=== PATIENT | female | born 1970 | race Caucasian/White ===

== ENCOUNTER 2017-03-03 00:21 | Emergency (ER) | payer BC ==
[2017-03-03] MEDS ORDERED: NS 0.9% 1000 ML* 1,000 ML IV ONE (00:31)
[2017-03-03 00:53] LABS: Hematocrit 39 % (35-47); Hemoglobin 12.8 g/dl (12.0-16.0); Mean Corpuscular HGB Conc 33 g/dl (31-36); Mean Corpuscular Hemoglobin 26 pg (27-31); Mean Corpuscular Volume 77 fL (80-97); Mean Platelet Volume 7 um3 (7.4-10.4); Red Blood Count 4.99 10^6/ul (4.0-5.4); Red Cell Distribution Width 14 % (10.5-15); White Blood Count 7.3 10^3/ul (3.5-10.8)
[2017-03-03 01:05] LABS: BUN/Creatinine Ratio 26.3 (8-20); Calcium 9.3 mg/dL (8.6-10.3); EGFR African American 105.4 (>60); EGFR Non-African American 81.9 (>60); Globulin 3.6 g/dL (2-4); Magnesium 1.9 mg/dL (1.9-2.7); Potassium 4.1 mmol/L (3.5-5.0); Total Bilirubin 0.3 mg/dL (0.2-1.0); Total Protein 7.6 g/dL (6.4-8.9)
[2017-03-03 01:24] LABS: TSH (Thyroid Stimulating Horm) 3.9 mcIU/mL (0.34-5.60)
--- NOTE | 2017-03-03 02:07 | ED ---
Cheo Payan Rebecca, scribed for Raúl Paulson MD on 03/03/17 at 0034 . Shortness of Breath - HPI Summary HPI Summary: Pt is a 46 y/o F who presents to ED c/o SOB and difficulty swallowing. Sx began 4 days ago (Tuesday) and have been constant since onset. SOB characterized as dyspnea at rest with the pt stating "I cannot swallow and breathe at the same time." Sx aggravated and alleviated by nothing. Additionally c/o lymph node swelling. Was evaluated by PCP yesterday where the pt reports she was tested for strep, thyroid function and mono. PSHx tonsillectomy. - History of Current Complaint Chief Complaint: EDShortnessOfBreath Time Seen by Provider: 03/03/17 00:28 Hx Obtained From: Patient Onset/Duration: Lasting Days - 4 days, Still Present Timing: Constant Dyspnea At: Rest Aggrevating Factors: Nothing Alleviating Factors: Nothing - Allergy/Home Medications Allergies/Adverse Reactions: Allergies Allergy/AdvReac Type Severity Reaction Status Date / Time Hydromorphone [From Dilaudid] Allergy Severe Vomiting Verified 07/29/16 07:44 Amoxicillin Allergy Intermediate Rash Verified 07/29/16 07:44 Cefaclor [From Ceclor] Allergy Intermediate Rash Verified 07/29/16 07:44 Hydrocodone [From Lortab] Allergy Intermediate Rash Verified 07/29/16 07:44 PMH/Surg Hx/FS Hx/Imm Hx Endocrine/Hematology History: Denies: Hx Anticoagulant Therapy, Hx Diabetes, Hx Thyroid Disease Cardiovascular History: Denies: Hx Congestive Heart Failure, Hx Deep Vein Thrombosis, Hx Hypertension , Hx Myocardial Infarction, Hx Pacemaker/ICD Respiratory History: Denies: Hx Asthma, Hx Chronic Obstructive Pulmonary Disease (COPD), Hx Lung Cancer, Hx Pneumonia, Hx Pulmonary Embolism GI History: Denies: Hx Gall Bladder Disease, Hx Gastrointestinal Bleed, Hx Ulcer, Hx Urosepsis, Other GI Disorders History: Reports: Hx Kidney Stones Denies: Hx Renal Disease, Other Problems/Disorders Musculoskeletal History: Reports: Hx Arthritis Sensory History: Reports: Hx Contacts or Glasses Denies: Hx Hearing Aid Opthamlomology History: Reports: Hx Contacts or Glasses Neurological History: Reports: Hx Migraine Denies: Hx Dementia, Hx Seizures, Hx Transient Ischemic Attacks (TIA) Psychiatric History: Reports: Hx Depression Denies: Hx Anxiety, Hx Panic Disorder, Hx Schizophrenia, Hx Bipolar Disorder - Cancer History Hx Chemotherapy: No Hx Radiation Therapy: No - Surgical History Surgery Procedure, Year, and Place: Tonsillectomy, 1992, [facility]. Choleycystectomy, 2004, [facility]. Hysterectomy, 2009, [facility] Infectious Disease History: Denies: Hx Clostridium Difficile, Hx Hepatitis, Hx Human Immunodeficiency Virus (HIV), Hx of Known/Suspected MRSA, Hx Shingles, Hx Tuberculosis, Hx Known/ Suspected VRE, Hx Known/Suspected VRSA, History Other Infectious Disease, Traveled Outside the in Last 30 Days - Family History Known Family History: Positive: Hypertension Negative: Cardiac Disease, Diabetes - Social History Alcohol Use: None Substance Use Type: Reports: None Smoking Status (MU): Never Smoked Tobacco Review of Systems Positive: Other - Difficulty swallowing, swollen lymph nodes Positive: Shortness Of Breath All Other Systems Reviewed And Are Negative: Yes Physical Exam Vital Signs On Initial Exam: Initial Vitals Temp Pulse Resp BP Pulse Ox 97.2 F 97 20 140/100 96 03/03/17 00:21 03/03/17 00:21 03/03/17 00:21 03/03/17 00:21 03/03/17 00:21 Diagnostics - Vital Signs Vital Signs Temp Pulse Resp BP Pulse Ox 03/03/17 00:21 97.2 F 97 20 140/100 96 - Laboratory Lab Results: Lab Results 03/03/17 03/03/17 03/03/17 Range/Units 00:19 00:30 00:30 WBC 7.3 (3.5-10.8) 10^3/ul RBC 4.99 (4.0-5.4) 10^6/ul Hgb 12.8 (12.0-16.0) g/dl Hct 39 (35-47) % MCV 77 L (80-97) fL MCH 26 L (27-31) pg MCHC 33 (31-36) g/dl RDW 14 (10.5-15) % Plt Count 306 (150-450) 10^3/ul MPV 7 L (7.4-10.4) um3 Neut % (Auto) 53.1 (38-83) % Lymph % (Auto) 34.4 (25-47) % [place] % (Auto) 9.3 H (1-9) % Eos % (Auto) 2.7 (0-6) % Baso % (Auto) 0.5 (0-2) % Absolute Neuts (auto) 3.9 (1.5-7.7) 10^3/ul Absolute Lymphs (auto) 2.5 (1.0-4.8) 10^3/ul Absolute Monos (auto) 0.7 (0-0.8) 10^3/ul Absolute Eos (auto) 0.2 (0-0.6) 10^3/ul Absolute Basos (auto) 0 (0-0.2) 10^3/ul Absolute Nucleated RBC 0.01 10^3/ul Nucleated RBC % 0.1 Sodium 138 (133-145) mmol/L Potassium 4.1 (3.5-5.0) mmol/L Chloride 106 (101-111) mmol/L Carbon Dioxide 25 (22-32) mmol/L Anion Gap 7 (2-11) mmol/L BUN 20 (6-24) mg/dL Creatinine 0.76 (0.51-0.95) mg/dL Est GFR ( Amer) 105.4 (>60) Est GFR (Non-Af Amer) 81.9 (>60) BUN/Creatinine Ratio 26.3 H (8-20) Glucose 103 H (70-100) mg/dL Lactic Acid (0.5-2.0) mmol/L Calcium 9.3 (8.6-10.3) mg/dL Magnesium 1.9 (1.9-2.7) mg/dL Total Bilirubin 0.30 (0.2-1.0) mg/dL AST 23 (13-39) U/L ALT 14 (7-52) U/L Alkaline Phosphatase 88 (34-104) U/L Total Protein 7.6 (6.4-8.9) g/dL Albumin 4.0 (3.2-5.2) g/dL Globulin 3.6 (2-4) g/dL Albumin/Globulin Ratio 1.1 (1-3) TSH 3.90 (0.34-5.60) mcIU/mL Group A Strep Rapid Negative (Negative) 03/03/17 Range/Units 00:30 WBC (3.5-10.8) 10^3/ul RBC (4.0-5.4) 10^6/ul Hgb (12.0-16.0) g/dl Hct (35-47) % MCV (80-97) fL MCH (27-31) pg MCHC (31-36) g/dl RDW (10.5-15) % Plt Count (150-450) 10^3/ul MPV (7.4-10.4) um3 Neut % (Auto) (38-83) % Lymph % (Auto) (25-47) % [place] % (Auto) (1-9) % Eos % (Auto) (0-6) % Baso % (Auto) (0-2) % Absolute Neuts (auto) (1.5-7.7) 10^3/ul Absolute Lymphs (auto) (1.0-4.8) 10^3/ul Absolute Monos (auto) (0-0.8) 10^3/ul Absolute Eos (auto) (0-0.6) 10^3/ul Absolute Basos (auto) (0-0.2) 10^3/ul Absolute Nucleated RBC 10^3/ul Nucleated RBC % Sodium (133-145) mmol/L Potassium (3.5-5.0) mmol/L Chloride (101-111) mmol/L Carbon Dioxide (22-32) mmol/L Anion Gap (2-11) mmol/L BUN (6-24) mg/dL Creatinine (0.51-0.95) mg/dL Est GFR ( Amer) (>60) Est GFR (Non-Af Amer) (>60) BUN/Creatinine Ratio (8-20) Glucose (70-100) mg/dL Lactic Acid 0.8 (0.5-2.0) mmol/L Calcium (8.6-10.3) mg/dL Magnesium (1.9-2.7) mg/dL Total Bilirubin (0.2-1.0) mg/dL AST (13-39) U/L ALT (7-52) U/L Alkaline Phosphatase (34-104) U/L Total Protein (6.4-8.9) g/dL Albumin (3.2-5.2) g/dL Globulin (2-4) g/dL Albumin/Globulin Ratio (1-3) TSH (0.34-5.60) mcIU/mL Group A Strep Rapid (Negative) Result Diagrams: 03/03/17 00:30 03/03/17 00:30 Lab Statement: Any lab studies that have been ordered have been reviewed, and results considered in the medical decision making process. - Radiology CXR Xray Interpretation: No Acute Changes Radiology Interpretation Completed By: ED Physician - CT Neck CT CT Interpretation: No Acute Changes - Left jugular chain lymphadenopathy, largest node 3.1 x 1.8 x 1.2 cm, advise followup. No abscess or focal fluid collection. Unremarkable tonsillar fossa, epiglottis, thyroid gland and parotid and submandibular glands. Small mucus retention cyst right maxillary sinus. CT Interpretation Completed By: Radiologist Re-Evaluation - Re-Evaluation First Eval Re-Evaluation Time: 02:35 Change: Unchanged Comment: Pt reports she does not feel comfortable going home and was given the option of a hospitalist assessment. Second Eval Re-Evaluation Time: 06:44 Change: Improved Comment: Discussed Neck CT results and plan to D/C. Course/Dx - Course Assessment/Plan: Pt is a 46 y/o F who presents to ED c/o SOB (dyspnea at rest) and difficulty swallowing for 4 days. Pt stated "I cannot swallow and breathe at the same time." Additionally c/o lymph node swelling. Was evaluated by PCP yesterday where the pt reports she was tested for strep, thyroid function and mono. PSHx tonsillectomy. CXR reveals no acute findings. Discussed care of pt with Dr. Salcedo, hospitalist, who will evaluate pt in the ED. He requested a neck CT after evaluation. Neck CT reveals: "Left jugular chain lymphadenopathy, largest node 3.1 x 1.8 x 1.2 cm, advise followup. No abscess or focal fluid collection. Unremarkable tonsillar fossa, epiglottis, thyroid gland and parotid and submandibular glands. Small mucus retention cyst right maxillary sinus." Pt will be D/C to home with Dx of URI. Pt understands and agrees. - Diagnoses Provider Diagnoses: URI (upper respiratory infection) - Physician Notifications Discussed Care of Patient With: Nathaniel Salcedo Time Discussed With Above Provider: 02:44 Instructed by Provider To: MD Will See In ED Discharge - Discharge Plan Condition: Stable Disposition: HOME Patient Education Materials: Upper Respiratory Infection (ED) Referrals: Bhupinder Guerra DO [Primary Care Provider] - 3 Days The documentation as recorded by the Cheo prescott Rebecca accurately reflects the service I personally performed and the decisions made by me, Raúl Paulson MD.
[2017-03-03] MEDS ORDERED: Iohexol 300* (CONTRAST) 10 ML SDV IV ONE (05:13)
[2017-03-03] MEDS ORDERED: LORazepam INJ* 2 MG/ML 1 ML VIAL IV PUSH ONE (05:25)
[2017-03-03 06:56] VITALS: BP 132/85
--- NOTE | 2017-03-03 07:27 | RAD ---
INDICATION: Shortness of breath. COMPARISON: Comparison is made with a prior chest x-ray study from July 23, 2015. TECHNIQUE: Dual-energy PA and lateral views of the chest were obtained. FINDINGS: The heart is within normal limits in size. Mediastinal and hilar contours appear within normal limits. The lungs are clear. No pleural effusion is present. IMPRESSION: NO EVIDENCE FOR ACTIVE CARDIOPULMONARY DISEASE.
--- NOTE | 2017-03-03 07:47 | RAD ---
HISTORY: Left-sided neck mass COMPARISONS: None TECHNIQUE: Multiple contiguous axial CT scans were obtained of the neck after the administration of nonionic intravenous contrast, with coronal and sagittal multiplanar reformations. FINDINGS: BRAIN AND ORBITS: The visualized brain and orbits are normal. PARANASAL SINUSES: There is minimal mucosal thickening of the right maxillary sinus. SALIVARY GLANDS: The parotid glands, submandibular glands, sublingual glands are normal. NASAL CAVITY/NASOPHARYNX: The nasal cavity and nasopharynx are normal. ORAL CAVITY/OROPHARYNX: The oral cavity is obscured by streak artifact from dental amalgam. The visualized oral cavity and oropharynx are unremarkable. LARYNGEAL APPARATUS/HYPOPHARYNX: The laryngeal apparatus and hypopharynx are normal. UPPER AIRWAY/UPPER ESOPHAGUS: The visualized upper airway and esophagus are normal. LUNG APICES: The lung apices are clear. THYROID GLAND: The thyroid gland is normal. LYMPH NODES: There are multiple lymph nodes along the anterior and posterior cervical chains bilaterally. On the left at level 2, these measure up to 1.4 cm in short axis.. VASCULATURE: The vasculature is unremarkable. BONES AND SOFT TISSUES: Mild degenerative changes are noted. OTHER: None. IMPRESSION: LEFT UPPER CERVICAL LYMPHADENOPATHY.
--- NOTE | 2017-03-03 16:32 | CONS ---
CC: Dr. Geurra * CONSULTATION REPORT: DATE OF CONSULT: 03/03/17 - EMERGENCY DEPT CHIEF COMPLAINT: Difficulty swallowing. HISTORY OF PRESENT ILLNESS: The patient is a 46-year-old woman who states on Tuesday she started having difficulty swallowing because there is some swelling on the left side of her throat. It has been increasing over the last 2 days. She went to her primary care physician's office yesterday. She had a lab work done, which was within normal limits. She had chills as well. She said she also gets short of breath when she tries to swallow. She has not eaten much over the last 2 days because she cannot get anything down. She apparently came to the hospital because it became increasingly painful and more difficult to swallow and more shortness of breath. In the ED, the patient was evaluated and her workup was negative. The patient asked for a second opinion because she felt that she needed further evaluation. PAST MEDICAL HISTORY: She has no significant past medical history. MEDICATIONS: She is on no medication. ALLERGIES: She has an allergy/adverse reaction to HYDROMORPHONE, AMOXICILLIN, CEFACLOR, and HYDROCODONE. FAMILY HISTORY: Mother at 72 from COPD. Father at 86 of a CVA. SOCIAL HISTORY: No tobacco, alcohol, or recreational drug use. 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 She is , with 3 children. REVIEW OF SYSTEMS: A 14-point review of systems was completed with the patient. All pertinent positives and negatives are in the history of present illness, otherwise is negative. PHYSICAL EXAM: A pleasant woman lying in bed, in no acute distress. Vital Signs: Temperature 97.5 degrees, heart rate 80 beats per minute, respiratory rate 16 breaths per minute, blood pressure 132/85. HEENT: Normocephalic, atraumatic. Pupils are equal, round, and reactive to light. Moist mucous membranes. Neck: Supple. There is tenderness and swelling along the left side along the sternocleidomastoid. Chest: Clear to auscultation and percussion bilaterally. Cardiovascular: S1, S2 appreciated. Regular rate and rhythm. Abdomen: Positive bowel sounds in all 4 quadrants. Soft, nontender, and nondistended. Extremities: No cyanosis, clubbing, or edema. +2 peripheral pulses bilaterally. Neuro: Alert and oriented x3. Moves all extremities. Skin: No evidence of rash or abnormalities. DIAGNOSTIC STUDIES/LAB DATA: White count 7.3, hemoglobin 12.8, hematocrit 39, platelets 306,000. Sodium 138, potassium 4.1, chloride 106, CO2 25, BUN 20, creatinine 0.76, glucose 103. Group A strep is negative. CT of the neck showed left jugular chain lymphadenopathy, large nodes 3.1 x 1.8 x 1.6 cm. No abscess or fluid collection. Unremarkable tonsillar fossa, epiglottis, thyroid gland, and parotid and submandibular gland. Small mucous retention cyst in maxillary sinus. Chest x-ray shows no acute infiltrates. ASSESSMENT AND PLAN: Left-sided neck pain and swelling, likely secondary to lymphadenopathy. It is somewhat impressive. The patient should follow up with ENT for further evaluation. The patient does not require admission, however, at this time. Discussed this with the ED doctor who is in agreement. The patient will be discharged and follow up TOMAS with ENT. The patient was in agreement with this plan. TIME SPENT: Over 65 minutes was spent on this consult, more than 35 minutes of which was spent in direct [id number] contact with the patient in evaluation, physical exam, counseling, and coordination of care. [id number]/[facility] #: [id number] MARION
== END 2017-03-03 07:00 | disposition home or self-care (01) ==
LOC: ED 00:21 → EEVIPCON 00:21 → ED 07:00
DX: J06.9 Acute upper respiratory infection, unspecified (principal); R13.10 Dysphagia, unspecified; R06.02 Shortness of breath
CPT/HCPCS: 36415; 70491; 71020; 80053; 83605; 83735; 84443; 85025; 87651; 96374; 99284; J2060; Q9967

== ENCOUNTER 2017-08-08 09:36 | Observation (INO) | payer BC ==
[2017-08-08] MEDS ORDERED: Ketorolac INJ* 30 MG/ML 1 ML VIAL IV ONE (09:53)
[2017-08-08] MEDS ORDERED: NS 0.9% 1000 ML* 1,000 ML IV ONE ×2 (10:01→12:24)
[2017-08-08 10:03] LABS: Hematocrit 40 % (35-47); Hemoglobin 13.3 g/dl (12.0-16.0); Mean Corpuscular HGB Conc 33 g/dl (31-36); Mean Corpuscular Hemoglobin 27 pg (27-31); Mean Corpuscular Volume 80 fL (80-97); Mean Platelet Volume 7 um3 (7.4-10.4); Red Blood Count 5.01 10^6/ul (4.0-5.4); Red Cell Distribution Width 14 % (10.5-15); White Blood Count 7.6 10^3/ul (3.5-10.8)
[2017-08-08 10:20] LABS: ALT 15 U/L (7-52); Alkaline Phosphatase 81 U/L (34-104); BUN/Creatinine Ratio 21.1 (8-20); Blood Urea Nitrogen 15 mg/dL (6-24); CO2 Carbon Dioxide 27 mmol/L (22-32); Calcium 9.5 mg/dL (8.6-10.3); Chloride 105 mmol/L (101-111); Creatine Kinase 54 U/L (10-223); EGFR African American 113.5 (>60); EGFR Non-African American 88.2 (>60); Globulin 3.5 g/dL (2-4); Glucose 115 mg/dL (70-100); Sodium 135 mmol/L (133-145); Total Protein 7.5 g/dL (6.4-8.9)
--- NOTE | 2017-08-08 10:24 | RAD ---
Indication: Chest pain. 2 views of the chest including dual energy PA views are reviewed and compared to previous exam dated March 03, 2017. Real-time shift is noted. Heart is of normal size and configuration. Lung rodrigues are clear. IMPRESSION: No active cardiopulmonary disease is noted.
[2017-08-08 11:02] LABS: TSH (Thyroid Stimulating Horm) 1.79 mcIU/mL (0.34-5.60)
[2017-08-08] MEDS ORDERED: Nitroglycerin TAB 0.4 MG* 0.4 MG TAB SL ONE (11:40)
[2017-08-08 12:29] LABS: Anion Gap 3 mmol/L (2-11)
[2017-08-08] MEDS ORDERED: Albuterol HFA INHALER* 8 gm MDI INH PRN (12:53)
[2017-08-08] MEDS ORDERED: Nitroglycerin TAB 0.4 MG* 0.4 MG TAB SL PRN ×2 (12:55→16:00)
--- NOTE | 2017-08-08 18:50 | HP ---
HISTORY AND PHYSICAL: DATE OF ADMISSION: 08/08/17 ADMITTING PROVIDER: Ramy Sanford MD PRIMARY CARE PHYSICIAN: Bhupinder Guerra DO CHIEF COMPLIANT: Chest tightness. Left arm tingling, left shoulder blade pain. HISTORY OF PRESENT ILLNESS: Alia Mendes is a 47-year-old female, PMH as above , woke up from sleep at 3 a.m. with 4/10 chest tightness in her left chest. She also had tingling and more so in her left shoulder all the way down to her hand and pain in her left shoulder blade. EMS was called, she was given 4 baby aspirin, 2 nitroglycerin and the chest tightness resolved or improved to 1/10, is fully improved in the ED. She got Toradol initially 30 at 10 a.m.,which did not seem to change her symptoms, but again with additional nitro as of 11:45 a.m., chest tightness was down to 1/10. Troponin initially was 0.00. EKG with normal sinus rhythm without any ischemic changes. She is being admitted for ACS rule out. She was a little short of breath, at baseline she gets shortness of breath walking upstairs. She does do a tap dance aerobic class twice a week which she tolerates okay. She is a never smoker. No significant cardiac family history. Did have elevated troponin back in July 2015, which she says felt different from this . At that time, troponin was around 0.15 and improved to 0.00 on recheck. Recently she has been worked out for a multinodular goiter as an outpatient with Dr. Guerra after she presented with some swallowing difficulty on 03/03/17. She denies any cough. She is nauseous , but no vomiting. No fevers or chills. No rashes. No recent travel. No leg swelling. on Tuesday night. Sees no specialist. PAST MEDICAL HISTORY: 1. Migraine headaches. 2. Anemia. 3. Endometriosis. 4. GERD. 5. Thyroid. 6. Multinodular goiter. CURRENT MEDICATIONS: 1. Levothyroxine 25 mcg daily. 2. Albuterol inhaler p.r.n. for exercise-induced asthma and recent sinus infection 2 weeks prior. The patient takes medications for GERD, but cannot remember what it was. ALLERGIES: DILAUDID gives severe vomiting; AMOXICILLIN, rash; CECLOR, rash; HYDROCODONE, rash. FAMILY HISTORY: Dad with 2 strokes, first at age 60. Mother of COPD. Brother has hypertension. 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 Never smoker. No significant alcohol use or drug use. Lives with Daryl Mendes who is her medical surrogate. REVIEW OF SYSTEMS: Complete 14-point review of systems is negative except as per HPI. PHYSICAL EXAMINATION GENERAL APPEARANCE: Well appearing, in no acute distress, sitting in hospital bed. HEENT: Normocephalic, atraumatic. Pupils equally round and reactive to light. Moist mucous membranes. Extraocular motions intact. NECK: No cervical lymphadenopathy. PULMONARY: Clear to auscultation bilaterally with no wheezing, rales or rhonchi. CARDIOVASCULAR: Regular rate and rhythm. No murmurs, rubs or gallops. ABDOMEN: Soft, nontender, nondistended. No peritoneal signs. No clotting. No Suh's sign. EXTREMITIES: Warm and well perfused. No peripheral edema. NEUROLOGIC: Cranial nerves II through XII are intact. Moving all extremities. Cross Country/Track And Field Coach strength intact bilaterally. MUSCULOSKELETAL: No pain to palpation of her shoulder blade or arm. DIAGNOSTIC STUDIES/LABORATORY DATA: White count 7.6, hemoglobin 13.3, hematocrit 40, platelets 391. Sodium 135, chloride 105, carbon dioxide 27, BUN 15, creatinine 0.71. Troponin 0.00. TSH 1.79. Chest x-ray, no acute cardiopulmonary process. EKG is normal sinus rhythm. No ST changes. No T-wave inversions. ASSESSMENT AND PLAN: Alia Mendes is a 47-year-old female presenting with chest tightness, left arm numbness, admitted for acute coronary syndrome rule out. Trend troponins 2 to 3 hours, continue telemetry, admit to observation status. Sublingual nitro as needed. If she gets another attack, we will start Nitropaste or morphine. No history of hyperlipidemia and HDL and LDL were good back in 2014. Hold off on atorvastatin right now. She is status post 324 mg aspirin in the ED and continue to have 81 mg tomorrow if she is still here. It is possible she could be discharged later this afternoon if third troponin is negative. She will be n.p.o. for now. Continue her Synthroid 25 mcg daily. Tylenol as needed for additional musculoskeletal pain. [id number]/[facility] #: [id number] [place]
[2017-08-08] MEDS: Ondansetron INJ* 2 MG/ML VIAL IV PRN (20:23)
[2017-08-09] MEDS ORDERED: Levothyroxine TAB* 25 MCG TAB PO SCH (06:00)
[2017-08-09] MEDS: Naproxen TAB* 250 MG PO PRN ×2 (08:23→15:50)
[2017-08-09] MEDS: Ondansetron INJ* 2 MG/ML VIAL IV PRN ×2 (08:24→15:51)
[2017-08-09] MEDS ORDERED: Aspirin Low Dose CHEW TAB* 81 MG PO SCH (09:00)
[2017-08-09 09:48] VITALS: BP 135/70
[2017-08-09] MEDS ORDERED: Regadenoson* 0.4 MG/5 ML SYRINGE ONE (09:53)
[2017-08-09] MEDS ORDERED: Aminophylline IV* 25 MG/ML 10 ML VIAL ONE (09:53)
--- NOTE | 2017-08-09 12:19 | RAD ---
Edited for charges. HISTORY: Chest pain COMPARISONS: None TECHNIQUE: A 1 day stress/rest myocardial perfusion study was performed, with exercise stress. The exercise portion was performed using the Alejandro protocol, for a total METs of 10.1. The stress portion was monitored by Dr. Van. Gated SPECT imaging was performed, without CT-based attenuation correction secondary to patient claustrophobia DOSE: Stress: Technetium 99m tetrofosmin, 25.38 millicuries, injected at 11:10 AM on August 09, 2017 Rest: Technetium 99m tetrofosmin, 1.5 millicuries, injected at 7:03 AM on August 09, 2017 Pharmacologic agent: None FINDINGS: CARDIAC MONITORING: Peak heart rate of 162 bpm, 94.1% of predicted. No EKG changes of ischemia with stress EF: 75% TID: 0.98 MOTION: Normal motion, with normal wall thickening. PERFUSION: There is a small to moderate reversible perfusion defect of the lateral wall. OTHER: None IMPRESSION: SMALL TO MODERATE REVERSIBLE PERFUSION DEFECT OF THE LATERAL WALL ASSESSMENT: INTERMEDIATE RISK. Based on imaging criteria from ACC/AHA 2002. Guideline Update for the Management of Patient's with Chronic Stable Angina, table 23. Noninvasive Risk Stratification. CPT II Codes: 6210J5N MTDD
--- NOTE | 2017-08-09 13:01 | PN ---
Subjective Date of Service: 08/09/17 Interval History: Pt is feeling ok currently. She did have some chest discomfort while at the stress test. No further chest pain. She has had a migraine all morning. Objective Active Medications: Albuterol (Ventolin Hfa Inhaler*) 1 puff INH QID PRN PRN Reason: SHORTNESS OF BREATH Aspirin (Aspirin Low Dose Tab*) 81 mg PO DAILY [facility] Last Admin: 08/09/17 07:48 Dose: 81 mg Levothyroxine Sodium (Synthroid Tab*) 25 mcg PO DAILY@0600 [facility] Last Admin: 08/09/17 06:22 Dose: 25 mcg Naproxen (Naprosyn Tab*) 500 mg PO Q8H PRN PRN Reason: MIGRAINE HEADACHE Last Admin: 08/09/17 08:23 Dose: 500 mg Nitroglycerin (Nitroglycerin Tab 0.4 Mg*) 0.4 mg SL Q5M PRN PRN Reason: ANGINA Ondansetron HCl (Zofran Inj*) 4 mg IV Q6H PRN PRN Reason: NAUSEA Last Admin: 08/09/17 08:24 Dose: 4 mg Vital Signs - 8 hr 08/09/17 08/09/17 08:00 09:06 Temperature 97.6 F Pulse Rate 74 Respiratory 16 16 Rate Blood Pressure 135/70 (mmHg) O2 Sat by Pulse 97 Oximetry Oxygen Devices in Use Now: None Appearance: Middle aged female lying in bed, NAD Eyes: No Scleral Icterus Ears/Nose/Mouth/Throat: Mucous Membranes Moist Respiratory: Symmetrical Chest Expansion and Respiratory Effort, Clear to Auscultation Cardiovascular: NL Sounds; No Murmurs; No JVD, RRR, No Edema Abdominal: NL Sounds; No Tenderness; No Distention Extremities: No Clubbing, Cyanosis Skin: No Rash or Ulcers, No Nodules or Sclerosis Neurological: Alert and Oriented x 3 Result Diagrams: 08/08/17 09:50 08/08/17 12:40 Assess/Plan/Problems-Billing Ms Mendes is a 47 yo F who has a h/o hypothyroidism who presented to the ER with c/o chest discomfort. - Patient Problems (1) Chest pain Current Visit: Yes Status: Acute Code(s): R07.9 - CHEST PAIN, UNSPECIFIED SNOMED Code(s): 22166981 Comment: The patient's stress test showed a small to moderate area of reversible change in the lateral wall. Will discuss with Dr. Van. Keep NPO for now and pt agrees. ? artifact from breast tissue vs true area of ischemia. (2) Hypothyroid Current Visit: Yes Status: Acute Code(s): E03.9 - HYPOTHYROIDISM, UNSPECIFIED SNOMED Code(s): 36745715 Comment: Continue current dose of synthroid. (3) Migraine Current Visit: Yes Status: Acute Code(s): G43.909 - MIGRAINE, UNSP, NOT INTRACTABLE, WITHOUT STATUS MIGRAINOSUS SNOMED Code(s): 21530404 Comment: Naproxen did not help her headache. Will give fentanyl 25mcg IV x1 now. Monitor symptoms. (4) DVT prophylaxis Current Visit: Yes Status: Acute Code(s): SXT7076 - SNOMED Code(s): 264855962 Comment: ambulation (5) Full code status Current Visit: Yes Status: Acute Code(s): Z78.9 - OTHER SPECIFIED HEALTH STATUS SNOMED Code(s): 712088564
[2017-08-09] MEDS ORDERED: fentaNYL* 50 MCG/ML 2 ML VIAL (100 MCG VIAL) IV SLOW PU ONE (13:09)
--- NOTE | 2017-08-09 15:24 | ED ---
Lisa Payan Edward, scribed for Polo Magana MD on 08/08/17 at 0944 . HPI Chest Pain - HPI Summary HPI Summary: 47 y/o female BIBA c/o CP located in the L side chest starting at 03:00 this morning. The pt was sleeping and was awakened by the pain. The pain is aggravated with deep breaths. Associated sx: L arm numbness, nausea, mild SOB. the pain is described as tightness, rated at 4-5/10 when it started and 3/10 now. 4-5 years ago the pt had similar symptoms. Sx hysterectomy, gall bladder removal, tonsillectomy. Denies cough, fever. - History of Current Complaint Chief Complaint: EDChestWallPain Time Seen by Provider: 08/08/17 09:39 Hx Obtained From: Patient Hx Last Menstrual Period: 2010 Onset/Duration: Started Hours Ago, Still Present Time of Onset: 03:00 Timing: Constant Initial Severity: Mild Current Severity: Mild Pain Intensity: 3 Pain Scale Used: 0-10 Numeric Chest Pain Location: Left Lateral Character: Tightness Aggravating Factor(s): Deep Breaths Alleviating Factor(s): Nothing Associated Signs and Symptoms: Positive: Chest Pain, Numbness - L arm, Shortness of Breath, Nausea. Negative: Fever, Cough - Allergy/Home Medications Allergies/Adverse Reactions: Allergies Allergy/AdvReac Type Severity Reaction Status Date / Time Hydromorphone [From Dilaudid] Allergy Severe Vomiting Verified 07/29/16 07:44 Amoxicillin Allergy Intermediate Rash Verified 07/29/16 07:44 Cefaclor [From Ceclor] Allergy Intermediate Rash Verified 07/29/16 07:44 Hydrocodone [From Lortab] Allergy Intermediate Rash Verified 07/29/16 07:44 Home Medications: Home Medications Albuterol HFA INHALER* [Ventolin HFA Inhaler*] 1 puff INH QID PRN 08/08/17 [ History Confirmed 08/08/17] Levothyroxine TAB* [Synthroid TAB*] 25 mcg PO DAILY 08/08/17 [History Confirmed 08/08/17] PMH/Surg Hx/FS Hx/Imm Hx Previously Healthy: No Endocrine/Hematology History: Denies: Hx Anticoagulant Therapy, Hx Diabetes, Hx Thyroid Disease Cardiovascular History: Denies: Hx Congestive Heart Failure, Hx Deep Vein Thrombosis, Hx Hypertension , Hx Myocardial Infarction, Hx Pacemaker/ICD Respiratory History: Denies: Hx Asthma, Hx Chronic Obstructive Pulmonary Disease (COPD), Hx Lung Cancer, Hx Pneumonia, Hx Pulmonary Embolism GI History: Denies: Hx Gall Bladder Disease, Hx Gastrointestinal Bleed, Hx Ulcer, Hx Urosepsis, Other GI Disorders History: Reports: Hx Kidney Stones Denies: Hx Dialysis, Hx Renal Disease, Other Problems/Disorders Musculoskeletal History: Reports: Hx Arthritis Sensory History: Reports: Hx Contacts or Glasses Denies: Hx Hearing Aid Opthamlomology History: Reports: Hx Contacts or Glasses Neurological History: Reports: Hx Migraine Denies: Hx Dementia, Hx Seizures, Hx Transient Ischemic Attacks (TIA) Psychiatric History: Reports: Hx Depression Denies: Hx Anxiety, Hx Panic Disorder, Hx Schizophrenia, Hx Bipolar Disorder - Cancer History Hx Chemotherapy: No Hx Radiation Therapy: No - Surgical History Surgery Procedure, Year, and Place: Tonsillectomy, 1992, [facility]. Choleycystectomy, 2004, [facility]. Hysterectomy, 2008, [facility] Infectious Disease History: No Infectious Disease History: Denies: Hx Clostridium Difficile, Hx Hepatitis, Hx Human Immunodeficiency Virus (HIV), Hx of Known/Suspected MRSA, Hx Shingles, Hx Tuberculosis, Hx Known/ Suspected VRE, Hx Known/Suspected VRSA, History Other Infectious Disease, Traveled Outside the in Last 30 Days - Family History Known Family History: Positive: Hypertension Negative: Cardiac Disease, Diabetes - Social History Alcohol Use: None Hx Substance Use: No Substance Use Type: Reports: None Hx Tobacco Use: No Smoking Status (MU): Never Smoked Tobacco Review of Systems Constitutional: Negative Eyes: Negative ENT: Negative Positive: Chest Pain Positive: Shortness Of Breath. Negative: Cough Positive: Nausea Genitourinary: Negative Musculoskeletal: Negative Skin: Negative Positive: Numbness - L arm Psychological: Normal All Other Systems Reviewed And Are Negative: Yes Physical Exam - Summary Physical Exam Summary: VITAL SIGNS: Reviewed. GENERAL: Patient is a well-developed and nourished female who is lying comfortable in the stretcher. Patient is not in any acute respiratory distress. HEAD AND FACE: No signs of trauma. No ecchymosis, hematomas or skull depressions. No sinus tenderness. EYES: PERRLA, EOMI x 2, No injected conjunctiva, no nystagmus. EARS: Hearing grossly intact. Ear canals and tympanic membranes are within normal limits. MOUTH: Oropharynx within normal limits. NECK: Supple, trachea is midline, no adenopathy, no JVD, no carotid bruit, no c- spine tenderness, neck with full ROM. CHEST: Symmetric, reproducible chest pain at the L side. LUNGS: Clear to auscultation bilaterally. No wheezing or crackles. CVS: Regular rate and rhythm, S1 and S2 present, no murmurs or gallops appreciated. ABDOMEN: Soft, non-tender. No signs of distention. No rebound no guarding, and no masses palpated. Bowel sounds are normal. EXTREMITIES: FROM in all major joints, no edema, no cyanosis or clubbing. NEURO: Alert and oriented x 3. No acute neurological deficits. Speech is normal and follows commands. SKIN: Dry and warm Triage Information Reviewed: Yes Vital Signs On Initial Exam: Initial Vitals Temp Pulse Resp BP Pulse Ox 97.9 F 95 22 152/91 96 08/08/17 09:38 08/08/17 09:38 08/08/17 09:38 08/08/17 09:38 08/08/17 09:38 Vital Signs Reviewed: Yes - Diego Coma Scale Coma Scale Total: 15 Diagnostics - Vital Signs Vital Signs Temp Pulse Resp BP Pulse Ox 08/08/17 09:38 97.9 F 95 22 152/91 96 - Laboratory Lab Results: Lab Results 08/08/17 08/08/17 Range/Units 09:50 09:50 WBC 7.6 (3.5-10.8) 10^3/ul RBC 5.01 (4.0-5.4) 10^6/ul Hgb 13.3 (12.0-16.0) g/dl Hct 40 (35-47) % MCV 80 (80-97) fL MCH 27 (27-31) pg MCHC 33 (31-36) g/dl RDW 14 (10.5-15) % Plt Count 391 (150-450) 10^3/ul MPV 7 L (7.4-10.4) um3 Neut % (Auto) 57.1 (38-83) % Lymph % (Auto) 34.0 (25-47) % Bremer % (Auto) 5.5 (1-9) % Eos % (Auto) 2.8 (0-6) % Baso % (Auto) 0.6 (0-2) % Absolute Neuts (auto) 4.3 (1.5-7.7) 10^3/ul Absolute Lymphs (auto) 2.6 (1.0-4.8) 10^3/ul Absolute Monos (auto) 0.4 (0-0.8) 10^3/ul Absolute Eos (auto) 0.2 (0-0.6) 10^3/ul Absolute Basos (auto) 0 (0-0.2) 10^3/ul Absolute Nucleated RBC 0.01 10^3/ul Nucleated RBC % 0.1 Sodium 135 (133-145) mmol/L Potassium Pending Chloride 105 (101-111) mmol/L Carbon Dioxide 27 (22-32) mmol/L Anion Gap Pending BUN 15 (6-24) mg/dL Creatinine 0.71 (0.51-0.95) mg/dL Est GFR ( Amer) 113.5 (>60) Est GFR (Non-Af Amer) 88.2 (>60) BUN/Creatinine Ratio 21.1 H (8-20) Glucose 115 H (70-100) mg/dL Calcium 9.5 (8.6-10.3) mg/dL Total Bilirubin 0.40 (0.2-1.0) mg/dL AST Pending ALT 15 (7-52) U/L Alkaline Phosphatase 81 (34-104) U/L Total Creatine Kinase 54 (10-223) U/L CK-MB (CK-2) 0.6 (0.6-6.3) ng/mL Troponin I 0.00 (<0.04) ng/mL Total Protein 7.5 (6.4-8.9) g/dL Albumin 4.0 (3.2-5.2) g/dL Globulin 3.5 (2-4) g/dL Albumin/Globulin Ratio 1.1 (1-3) TSH Pending Result Diagrams: 08/08/17 09:50 08/08/17 12:40 Lab Statement: Any lab studies that have been ordered have been reviewed, and results considered in the medical decision making process. - Radiology CXR Xray Interpretation: No Acute Changes - NO ACTIVE CARDIOPULMONARY DISEASE NOTED Radiology Interpretation Completed By: Radiologist - ED PHYSICIAN REVIEWS AND AGREES - EKG 1 EKG Interpretation: 10:23 - SR @ 88 BPM w/o ST ELEVATIONS EKG Comparison: No Significant Change - 07/23/15 2 EKG Interpretation: 11:28 - SR @ 72 bpm, NO ST ELEVATIONS. Re-Evaluation - Re-Evaluation 1 Re-Evaluation Time: 12:00 Change: Unchanged - Pt is still having CP and also c/o dizziness. Pt was given 1 NTG and her CP went from 6 to a 4/10. Discussed plan to admit Chest Pain Course/Dx - Course Assessment/Plan: 47 y/o female BIBA c/o CP located in the L side chest starting at 03:00 this morning. The pt was sleeping and was awakened by the pain. The pain is aggravated with deep breaths. Associated sx: L arm numbness, nausea, mild SOB. the pain is described as tightness, rated at 4-5/10 when it started and 3/10 now. 4-5 years ago the pt had similar symptoms. Sx hysterectomy, gall bladder removal, tonsillectomy. CXR NEGATIVE. EKG @ 10:23 - SR @ 88 BPM w/o ST ELEVATIONS. REPEATE EKG SHOWS 11:28 - SR @ 72 bpm, NO ST ELEVATIONS. Test results without significant abnormalities except glucose of 115. Prior to arrival the pt was given NTG and ASA in the ambulance and her sx improved. While she was here the pt reports that her pain has improved and the pain was reproducible, therefore she was given 1 dose Toradol. The toradol did not help her pain. A few hours later the pt developed again CP and chest pressure; therefore the pt was given NTG and again her sx improved; therefore I discussed with Dr. Sanford who accepted the pt for admission. - Chest Pain Differential Diagnosis/HQI/PQRI: Acute ID, ACS, Angina, CHF, Chest Wall, GI Disease, Pulmonary Edema - Diagnoses Provider Diagnoses: Chest Pain, rule out ACS - Provider Notifications Discussed Care Of Patient With: Ramy Sanford Time Discussed With Above Provider: 12:20 Instructed by Provider To: Admit As Inpatient Discharge - Discharge Plan Condition: Stable Disposition: ADMITTED TO [facility] documentation as recorded by the Lisa prescott Edward accurately reflects the service I personally performed and the decisions made by , Polo Magana MD.
--- NOTE | 2017-08-09 22:32 | CONS ---
CC: Dr. Bhupinder Guerra; Dr. Clair Holloway * CARDIOLOGY CONSULTATION REPORT: DATE OF CONSULT: 08/09/17 INDICATION FOR CONSULTATION: Chest discomfort. HISTORY OF PRESENT ILLNESS: The patient is a 47-year-old female with a history of anemia, gastroesophageal reflux disease, who was admitted to the hospital with chest discomfort. The patient states that she was at home yesterday when she started having chest pain, it was in the center of her chest. She did have some mild diaphoresis with that, it did radiate down her arm. The patient got quite anxious with this and ultimately called 911. On arrival of the ambulance , her EKG showed no obvious ST segment abnormalities. Her blood pressure on arrival of the ambulance was 180/120. The patient was transferred to the emergency room. She was given nitroglycerin and morphine with resolution of her symptoms. She has not had any further symptoms since being in the hospital. The patient's EKG shows no ischemic EKG changes. Her troponin levels were negative x3. PAST MEDICAL HISTORY: Significant for: 1. Migraine headaches. 2. Anemia. 3. Gastroesophageal reflux disease. 4. Multinodular goiter. OUTPATIENT MEDICATIONS: 1. Levoxyl 25 mcg a day. 2. Albuterol p.r.n. ALLERGIES: She is intolerant to Dilaudid and amoxicillin. FAMILY HISTORY: Father had a history of strokes, his first was the age of 60. Mother of COPD. 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 She has never been a smoker. She denies any alcohol. She lives with her . She does not get any regular exercise. PHYSICAL EXAM: Height is 5 feet 10 inches, weight 213 pounds, temperature 97.6 , heart rate 74, blood pressure 135/70, respiratory rate is 16, oxygen saturation 97% on room air. Sclerae anicteric. Oropharynx is pink without erythema. Carotids are 2+ without bruits. JVD is normal. Thyroid is normal. Cardiac Exam: S1, S2 without any murmurs, rubs, or gallops. PMI is normal. Lungs are clear to auscultation bilaterally with no dullness to percussion. Abdomen is soft, nontender, and nondistended with normoactive bowel sounds. Extremities show no edema. She has 2+ pulses throughout. The patient is awake , alert, and oriented. She moves all 4 extremities equally. DIAGNOSTIC STUDIES/LAB DATA: CBC within normal limits. Chemistry is within normal limits. AST and ALT are normal. Troponins are negative x3. TSH 1.79. EKG shows normal sinus rhythm with normal axis and intervals. The patient underwent an exercise nuclear stress test today. She exercised for an 8 minutes and 15 seconds. She had no EKG changes, no arrhythmias. The patient did have 3/10 chest pain at the peak of exercise that resolved within 3 minutes of recovery. The patient had nuclear imaging, which showed a mild area of mild defect to her lateral wall. Overall, LV function was normal. IMPRESSION: This is a 47-year-old female with low cardiac risk factors, who was admitted to the hospital with chest pain. She ruled out for acute coronary syndrome. Her stress test shows reasonable exercise tolerance. She did have mild chest pain at peak exercise. She did have a mild area of potential ischemic defect to her lateral wall. It was not an attenuation corrected images. She does have some lateral wall attenuation from her breast tissue. RECOMMENDATIONS: For now, my recommendation is to treat her for potential coronary artery disease. I do not think the patient needs to go to cardiac catheterization right now. My recommendation is to start aspirin 81 mg a day, Toprol-XL 25 mg a day, and atorvastatin 40 mg a day. I will see the patient in followup in 7 to 10 days. If she has any further chest pain, then I would recommend cardiac catheterization. At some point in the future, we may consider a CT angiogram of the coronary arteries for definitive evaluation of her coronary artery disease without risk of catheterization. I will discuss with her followup. [id number]/[facility] #: [id number] [place]
--- NOTE | 2017-08-10 03:13 | DS ---
CC: Dr. Guerra * DISCHARGE SUMMARY: DATE OF ADMISSION: 08/08/17 DATE OF DISCHARGE: 08/09/17 PRIMARY CARE PROVIDER: Dr. Guerra. PRINCIPAL DIAGNOSIS: Chest pain with abnormal stress test - possibly mild coronary artery disease. SECONDARY DIAGNOSES: 1. Migraine headaches. 2. Gastroesophageal reflux disease. 3. Hypothyroidism. DISCHARGE MEDICATIONS: 1. Zofran ODT 4 mg p.o. q.6 hours p.r.n. nausea. 2. Vitamin B12 5000 mcg p.o. daily. 3. Naproxen 500 mg p.o. q.8 hours p.r.n. pain. 4. Albuterol 2 puffs inhaled 4 times daily p.r.n. shortness of breath. 5. Levothyroxine 25 mcg p.o. daily. 6. Metoprolol XL 25 mg p.o. daily (new). 7. Lipitor 20 mg p.o. q.h.s. (new). 8. Aspirin 81 mg p.o. daily (new). HOSPITAL COURSE: Ms. Mendes is a 47-year-old female, who presented to the emergency room on 08/08/17 with complaints of chest tightness, left arm tingling , and left shoulder blade pain. The patient was awakened from sleep with this discomfort. The patient ultimately presented to the emergency room with these complaints and was admitted to rule out an acute coronary syndrome. The patient was ruled out for an acute coronary syndrome and underwent a nuclear stress test on the day of discharge. The nuclear imaging of the stress test revealed a small-to- moderate reversible perfusion defect of the lateral wall. The patient was seen in consultation by Dr. Van, who at this time noted that the patient exercised quite well during the stress test and had no EKG changes and wished to treat the patient medically. He recommended starting her on aspirin 81 mg p.o. daily, Toprol-XL 25 mg p.o. daily, and Lipitor 20 mg p.o. daily. The patient is in agreement with this plan. She will follow back up with Dr. Van as an outpatient where he will potentially arrange for a coronary artery CT. At this point, the patient is felt to be stable for discharge home. FOLLOWUP CONCERNS: The patient is being discharged home today, 08/09/17. ACTIVITY LEVEL: As tolerated. DIET: Low fat. CONDITION ON DISCHARGE: Stable. TIME SPENT: Thirty-five minutes was spent discharging this patient. [id number]/[facility] #: [id number] [place]
== END 2017-08-09 17:22 | disposition home or self-care (01) ==
LOC: ED 09:36 → MEDTELE 12:51
PROVIDERS: ADMIT Internal Medicine; ATTEND Hospitalist
DX: R07.9 Chest pain, unspecified (principal); G43.909 Migraine, unspecified, not intractable, without status migrainosus; K21.9 Gastro-esophageal reflux disease without esophagitis; E03.9 Hypothyroidism, unspecified; Z79.899 Other long term (current) drug therapy; Z88.1 Allergy status to other antibiotic agents; Z88.5 Allergy status to narcotic agent; N80.9 Endometriosis, unspecified; E04.2 Nontoxic multinodular goiter; R06.02 Shortness of breath; R94.31 Abnormal electrocardiogram [ECG] [EKG]
CPT/HCPCS: 36415; 71020; 78452; 80053; 82550; 82553; 84443; 84484; 85025; 93005; 93017; 96361; 96374; 96375; 99284; A9270-GY; A9502; G0378; J0280; J1885; J2405; J2785; J3010

== ENCOUNTER 2017-12-21 07:48 | Emergency (ER) | payer BC ==
[2017-12-21] MEDS ORDERED: Ondansetron INJ* 2 MG/ML VIAL IV ONE (08:25)
[2017-12-21] MEDS ORDERED: Meclizine TAB* 12.5 MG PO ONE (08:25)
[2017-12-21] MEDS ORDERED: NS 0.9% 1000 ML* 2,000 ML IV ONE (08:25)
[2017-12-21 08:45] LABS: ABS Basophils 0 10^3/ul (0-0.2); ABS Eosinophils 0.2 10^3/ul (0-0.6); ABS Lymphocytes 2.1 10^3/ul (1.0-4.8); ABS Monocytes 0.4 10^3/ul (0-0.8); ABS Neutrophils 3.8 10^3/ul (1.5-7.7); ABS Nucleated RBC 0 10^3/ul; Hematocrit 39 % (35-47); Hemoglobin 13.1 g/dl (12.0-16.0); Lymphocyte % 32.7 % (25-47); Mean Corpuscular HGB Conc 34 g/dl (31-36); Mean Corpuscular Hemoglobin 27 pg (27-31); Mean Corpuscular Volume 80 fL (80-97); Mean Platelet Volume 6.9 um3 (7.4-10.4); Nucleated Red Blood Cells % 0.1; Platelet Count 313 10^3/ul (150-450); Red Cell Distribution Width 14 % (10.5-15); White Blood Count 6.5 10^3/ul (3.5-10.8)
[2017-12-21 08:58] LABS: INR 0.92 (0.77-1.02)
[2017-12-21 09:05] LABS: EGFR Non-African American 76.9 (>60)
[2017-12-21 09:34] LABS: Urine Appearance Clear; Urine Blood 2+ (Negative); Urine Color Straw; Urine Ketones Negative (Negative); Urine Protein Negative (Negative); Urine Specific Gravity 1.003 (1.010-1.030); Urine Urobilinogen Negative (Negative)
--- NOTE | 2017-12-21 12:18 | ED ---
Joe Payan Gabriel, scribed for Jaswinder Valerio MD on 12/21/17 at 0824 . Dizziness - HPI Summary HPI Summary: This patient is a 47 year old F BIBA to [facility] with a chief complaint of dizziness that occurred this morning. Pt just woke up and sat on her daughters bed when the symptoms began. Symptoms aggravated by moving her head. Patient reports near syncope, nausea, dizziness, and light headedness. Patient denies neck pain, sore throat, [place], CP, palpitations, ear pain, cough, chest congestion , poor eating habits, weakness, numbness, and vomiting. She describes the dizziness as feeling light headed, without any spinning. She c/o of increased leg cramps for the last two days and intermittent mild ABD pain for the past three weeks. Pt states she has had 3 episodes of bloody stool in the last two weeks, last BM was this morning without blood. - History Of Current Complaint Chief Complaint: EDDizziness Stated Complaint: DIZZINESS Time Seen by Provider: 12/21/17 07:50 Hx Obtained From: Patient Onset/Duration: Still Present, Suddenly Timing: Constant Severity Initially: Moderate Severity Currently: Moderate Character: Lightheaded, Dizzy Aggravating Factor(s): Change In Head Position Associated Signs And Symptoms: Positive: Negative - neck pain, sore throat, [place], ear pain, cough, chest congestion, poor eating habits, weakness, numbness, and vomiting, Other: - near syncope, nausea, dizziness, and light headedness - Allergies/Home Medications Allergies/Adverse Reactions: Allergies Allergy/AdvReac Type Severity Reaction Status Date / Time acetaminophen [From Lortab] Allergy Rash Verified 12/21/17 08:06 amoxicillin Allergy Rash Verified 12/21/17 08:06 cefaclor [From Ceclor] Allergy Rash Verified 12/21/17 08:06 hydrocodone [From Lortab] Allergy Rash Verified 12/21/17 08:06 hydromorphone [From Dilaudid] Allergy Vomiting Verified 12/21/17 08:06 Home Medications: Home Medications Aspirin EC TAB* [Ecotrin EC Low Dose 81 MG*] 81 mg PO DAILY 12/21/17 [History Confirmed 12/21/17] Cholecalciferol TAB* [Vitamin D TAB*] 5,000 unit PO DAILY 12/21/17 [History Confirmed 12/21/17] Cyanocobalamin (Vitamin B-12) [Vitamin B-12] 1,000 mcg SL Q4H PRN 12/21/17 [ History Confirmed 12/21/17] Fluticasone NASAL SPRAY 50MCG* [Flonase NASAL SPRAY 50MCG*] 2 spray BOTH NARES DAILY 12/21/17 [History Confirmed 12/21/17] Vitamin B Complex TAB* [B Complex-50*] 1 tab PO DAILY 12/21/17 [History Confirmed 12/21/17] PMH/Surg Hx/FS Hx/Imm Hx Endocrine/Hematology History: Reports: Hx Thyroid Disease Denies: Hx Anticoagulant Therapy, Hx Diabetes Cardiovascular History: Reports: Hx Hypercholesterolemia, Hx Hypertension Denies: Hx Angina, Hx Congestive Heart Failure, Hx Deep Vein Thrombosis, Hx Myocardial Infarction, Hx Pacemaker/ICD Respiratory History: Denies: Hx Asthma, Hx Chronic Obstructive Pulmonary Disease (COPD), Hx Lung Cancer, Hx Pneumonia, Hx Pulmonary Embolism GI History: Denies: Hx Gall Bladder Disease, Hx Gastrointestinal Bleed, Hx Ulcer, Hx Urosepsis, Other GI Disorders History: Reports: Hx Kidney Stones Denies: Hx Dialysis, Hx Renal Disease, Other Problems/Disorders Musculoskeletal History: Reports: Hx Arthritis Sensory History: Reports: Hx Contacts or Glasses Denies: Hx Hearing Aid Opthamlomology History: Reports: Hx Contacts or Glasses Neurological History: Reports: Hx Migraine Denies: Hx Dementia, Hx Seizures, Hx Transient Ischemic Attacks (TIA) Psychiatric History: Reports: Hx Depression Denies: Hx Anxiety, Hx Panic Disorder, Hx Schizophrenia, Hx Bipolar Disorder - Cancer History Hx Chemotherapy: No Hx Radiation Therapy: No - Surgical History Surgery Procedure, Year, and Place: Tonsillectomy, 1992, [facility]. Choleycystectomy, 2004, [facility]. Hysterectomy, 2009, [facility] Infectious Disease History: No Infectious Disease History: Denies: Hx Clostridium Difficile, Hx Hepatitis, Hx Human Immunodeficiency Virus (HIV), Hx of Known/Suspected MRSA, Hx Shingles, Hx Tuberculosis, Hx Known/ Suspected VRE, Hx Known/Suspected VRSA, History Other Infectious Disease, Traveled Outside the in Last 30 Days - Family History Known Family History: Positive: Hypertension Negative: Cardiac Disease, Diabetes - Social History Lives: With Family Alcohol Use: None Hx Substance Use: No Substance Use Type: Reports: None Hx Tobacco Use: No Smoking Status (MU): Never Smoked Tobacco Review of Systems Constitutional: Negative - poor eating habits, Negative: Sore Throat, Ear Ache Negative: Palpitations, Chest Pain Respiratory: Negative - chest congestion Negative: Cough Positive: Abdominal Pain - see HPI , Nausea, Other - blood in stool (see HPI) . Negative: Vomiting Musculoskeletal: Negative - neck pain, Neurological: Other - dizziness, ligjht Positive: Syncope - near . Negative: Headache, Weakness, Numbness All Other Systems Reviewed And Are Negative: Yes Physical Exam - Summary Physical Exam Summary: General: well-appearing, no pain distress Skin: warm, color reflects adequate perfusion, dry Head: normal Eyes: EOMI, unidirectional nystagmus, pt feels dizzy with eye movement ENT: nasal congestion Neck: supple, nontender Respiratory: CTA, breath sounds present Cardiovascular: RRR Abdomen: soft, nontender Bowel: present Musculoskeletal: normal, strength/ROM intact Neurological: normal, sensory/motor intact, A&O x3 Psychological: affect/mood appropriate Triage Information Reviewed: Yes Vital Signs On Initial Exam: Initial Vitals Temp Pulse Resp BP Pulse Ox 97.5 F 75 20 145/78 97 12/21/17 07:50 12/21/17 07:50 12/21/17 07:50 12/21/17 07:50 12/21/17 07:50 Vital Signs Reviewed: Yes Diagnostics - Vital Signs Vital Signs Temp Pulse Resp BP Pulse Ox 12/21/17 07:50 97.5 F 75 20 145/78 97 - Laboratory Lab Results: Lab Results 12/21/17 12/21/17 12/21/17 Range/Units 08:35 08:35 08:35 WBC (3.5-10.8) 10^3/ul RBC (4.0-5.4) 10^6/ul Hgb (12.0-16.0) g/dl Hct (35-47) % MCV (80-97) fL MCH (27-31) pg MCHC (31-36) g/dl RDW (10.5-15) % Plt Count (150-450) 10^3/ul MPV (7.4-10.4) um3 Neut % (Auto) (38-83) % Lymph % (Auto) (25-47) % Kern % (Auto) (0-7) % Eos % (Auto) (0-6) % Baso % (Auto) (0-2) % Absolute Neuts (auto) (1.5-7.7) 10^3/ul Absolute Lymphs (auto) (1.0-4.8) 10^3/ul Absolute Monos (auto) (0-0.8) 10^3/ul Absolute Eos (auto) (0-0.6) 10^3/ul Absolute Basos (auto) (0-0.2) 10^3/ul Absolute Nucleated RBC 10^3/ul Nucleated RBC % INR (Anticoag Therapy) 0.92 (0.77-1.02) APTT 31.8 (26.0-36.3) seconds Sodium 141 (139-145) mmol/L Potassium 4.4 (3.5-5.0) mmol/L Chloride 107 (101-111) mmol/L Carbon Dioxide 28 (22-32) mmol/L Anion Gap 6 (2-11) mmol/L BUN 15 (6-24) mg/dL Creatinine 0.80 (0.51-0.95) mg/dL Est GFR ( Amer) 98.9 (>60) Est GFR (Non-Af Amer) 76.9 (>60) BUN/Creatinine Ratio 18.8 (8-20) Glucose 102 H (70-100) mg/dL Lactic Acid 0.7 (0.5-2.0) mmol/L Calcium 9.5 (8.6-10.3) mg/dL Magnesium 1.9 (1.9-2.7) mg/dL Total Bilirubin 0.40 (0.2-1.0) mg/dL AST 25 (13-39) U/L ALT 18 (7-52) U/L Alkaline Phosphatase 79 (34-104) U/L Troponin I 0.00 (<0.04) ng/mL C-Reactive Protein 4.72 (< 5.00) mg/L Total Protein 7.4 (6.4-8.9) g/dL Albumin 4.0 (3.2-5.2) g/dL Globulin 3.4 (2-4) g/dL Albumin/Globulin Ratio 1.2 (1-3) Lipase 19 (11.0-82.0) U/L TSH 1.61 (0.34-5.60) mcIU/mL Urine Color Urine Appearance Urine pH (5-9) Ur Specific [place] (1.010-1.030) Urine Protein (Negative) Urine Ketones (Negative) Urine Blood (Negative) Urine Nitrate (Negative) Urine Bilirubin (Negative) Urine Urobilinogen (Negative) Ur Leukocyte Esterase (Negative) Urine WBC (Auto) (Absent) Urine RBC (Auto) (Absent) Ur Squamous Epith Cells (Absent) Urine Bacteria (Absent) Urine Glucose (Negative) 12/21/17 12/21/17 Range/Units 08:35 09:05 WBC 6.5 (3.5-10.8) 10^3/ul RBC 4.80 (4.0-5.4) 10^6/ul Hgb 13.1 (12.0-16.0) g/dl Hct 39 (35-47) % MCV 80 (80-97) fL MCH 27 (27-31) pg MCHC 34 (31-36) g/dl RDW 14 (10.5-15) % Plt Count 313 (150-450) 10^3/ul MPV 6.9 L (7.4-10.4) um3 Neut % (Auto) 57.9 (38-83) % Lymph % (Auto) 32.7 (25-47) % Kern % (Auto) 5.7 (0-7) % Eos % (Auto) 3.0 (0-6) % Baso % (Auto) 0.7 (0-2) % Absolute Neuts (auto) 3.8 (1.5-7.7) 10^3/ul Absolute Lymphs (auto) 2.1 (1.0-4.8) 10^3/ul Absolute Monos (auto) 0.4 (0-0.8) 10^3/ul Absolute Eos (auto) 0.2 (0-0.6) 10^3/ul Absolute Basos (auto) 0 (0-0.2) 10^3/ul Absolute Nucleated RBC 0 10^3/ul Nucleated RBC % 0.1 INR (Anticoag Therapy) (0.77-1.02) APTT (26.0-36.3) seconds Sodium (139-145) mmol/L Potassium (3.5-5.0) mmol/L Chloride (101-111) mmol/L Carbon Dioxide (22-32) mmol/L Anion Gap (2-11) mmol/L BUN (6-24) mg/dL Creatinine (0.51-0.95) mg/dL Est GFR ( Amer) (>60) Est GFR (Non-Af Amer) (>60) BUN/Creatinine Ratio (8-20) Glucose (70-100) mg/dL Lactic Acid (0.5-2.0) mmol/L Calcium (8.6-10.3) mg/dL Magnesium (1.9-2.7) mg/dL Total Bilirubin (0.2-1.0) mg/dL AST (13-39) U/L ALT (7-52) U/L Alkaline Phosphatase (34-104) U/L Troponin I (<0.04) ng/mL C-Reactive Protein (< 5.00) mg/L Total Protein (6.4-8.9) g/dL Albumin (3.2-5.2) g/dL Globulin (2-4) g/dL Albumin/Globulin Ratio (1-3) Lipase (11.0-82.0) U/L TSH (0.34-5.60) mcIU/mL Urine Color Straw Urine Appearance Clear Urine pH 7.0 (5-9) Ur Specific [place] 1.003 L (1.010-1.030) Urine Protein Negative (Negative) Urine Ketones Negative (Negative) Urine Blood 2+ A (Negative) Urine Nitrate Negative (Negative) Urine Bilirubin Negative (Negative) Urine Urobilinogen Negative (Negative) Ur Leukocyte Esterase Negative (Negative) Urine WBC (Auto) Trace(0-5/hpf) (Absent) Urine RBC (Auto) Trace(0-2/hpf) (Absent) Ur Squamous Epith Cells Present A (Absent) Urine Bacteria 1+ A (Absent) Urine Glucose Negative (Negative) Result Diagrams: 12/21/17 08:35 12/21/17 08:35 Lab Statement: Any lab studies that have been ordered have been reviewed, and results considered in the medical decision making process. Re-Evaluation - Re-Evaluation First Eval Re-Evaluation Time: 10:26 Change: Unchanged Comment: I discussed the labs, pt was still dizzy on orthostatic. When she finishes her fluids they will be attempted again. Dizzy Course/Dx - Course Course Of Treatment: IMPROVED IN ED. AMBULATED IN ED. NO FOCAL NEUROLOGIC DEFICIT. DISCUSSED RESULTS WITH THE PATIENT AND HER . F/U PMD; RETURN IF WORSE. - Diagnoses Provider Diagnoses: Vertigo Discharge - Sign-Out/Discharge Documenting (check all that apply): Discharge - Discharge Plan Condition: Stable Disposition: HOME Prescriptions: Meclizine HCl [Motion Sickness Relief] 25 mg PO Q6H PRN #15 tablet PRN Reason: Vertigo Patient Education Materials: Vertigo (ED) Referrals: Bhupinder Guerra DO [Primary Care Provider] - Additional Instructions: FOLLOW UP WITH YOUR DOCTOR. RETURN TO THE EMERGENCY DEPARTMENT FOR ANY WORSENING OF YOUR CONDITION; WEAKNESS , NUMBNESS, DIFFICULTY WITH VISION OR SPEECH OR QUESTIONS OR CONCERNS. - Billing Disposition and Condition Condition: STABLE Disposition: HOME The documentation as recorded by the Joe prescott Gabriel accurately reflects the service I personally performed and the decisions made by me, Jaswinder Valerio MD.
[2017-12-21 12:39] VITALS: BP 132/72
== END 2017-12-21 12:33 | disposition home or self-care (01) ==
LOC: ED 07:48
DX: R42 Dizziness and giddiness (principal); R51 Headache; R55 Syncope and collapse; R11.0 Nausea; R10.9 Unspecified abdominal pain
CPT/HCPCS: 36415; 80053; 81003; 81015; 83605; 83690; 83735; 84443; 84484; 85025; 85610; 85730; 86140; 87086; 93005; 96374; 99283; A9270-GY; J2405

== ENCOUNTER 2018-02-27 20:28 | Emergency (ER) | payer BC ==
[2018-02-27] MEDS ORDERED: Diazepam SYRINGE* 5 MG/ML 2 ML SYRINGE (10 MG total) IV ONE (21:14)
[2018-02-27] MEDS ORDERED: Ketorolac INJ* 30 MG/ML 1 ML VIAL IV PUSH ONE (21:14)
[2018-02-27] MEDS ORDERED: Metoclopramide IV* 5 MG/ML 2 ML VIAL IV SLOW PU ONE (21:15)
[2018-02-27] MEDS ORDERED: Diazepam INJ (NF) 5 MG/ML 10 ML VIAL (50 MG TOTAL) IV ONE (22:00)
[2018-02-27 23:22] LABS: Urine Appearance Clear; Urine Blood 2+ (Negative); Urine Color Yellow; Urine Ketones Negative (Negative); Urine Protein 2+(100 mg/dL) (Negative); Urine Specific Gravity 1.021 (1.010-1.030); Urine Urobilinogen Negative (Negative)
--- NOTE | 2018-02-27 23:36 | ED ---
Bridgett Payan Emily, scribed for Juan Carver MD on 02/27/18 at 2122 . 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 The patient rates the pain 9/10 in severity. Symptoms aggravated by movement. Symptoms alleviated by nothing. Patient reports nausea. Patient denies abd pain. Pt states she took 880 mg of Ibuprofen and 400 mg of metaxalone at 1800 with no relief of symptoms. Pt states that she has chronic muscle spasms on right-side of back. 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 Negative: Abdominal Pain - Allergies/Home Medications Allergies/Adverse Reactions: Allergies Allergy/AdvReac Type Severity Reaction Status Date / Time acetaminophen [From Lortab] Allergy Rash Verified 12/21/17 08:06 amoxicillin Allergy Rash Verified 12/21/17 08:06 cefaclor [From Ceclor] Allergy Rash Verified 12/21/17 08:06 hydrocodone [From Lortab] Allergy Rash Verified 12/21/17 08:06 hydromorphone [From Dilaudid] Allergy Vomiting Verified 12/21/17 08:06 Home Medications: Home Medications Ibuprofen TAB* [Advil TAB*] 200 mg PO Q6H PRN 02/27/18 [History Confirmed ] Metaxalone TAB* [Skelaxin TAB*] 400 - 800 mg PO QID 02/27/18 [History Confirmed 02/27/18] PMH/Surg Hx/FS Hx/Imm Hx Previously Healthy: No Endocrine/Hematology History: Reports: Hx Thyroid Disease Denies: Hx Anticoagulant Therapy, Hx Diabetes Cardiovascular History: Reports: Hx Hypercholesterolemia, Hx Hypertension Denies: Hx Angina, Hx Congestive Heart Failure, Hx Deep Vein Thrombosis, Hx Myocardial Infarction, Hx Pacemaker/ICD Respiratory History: Denies: Hx Asthma, Hx Chronic Obstructive Pulmonary Disease (COPD), Hx Lung Cancer, Hx Pneumonia, Hx Pulmonary Embolism GI History: Denies: Hx Gall Bladder Disease, Hx Gastrointestinal Bleed, Hx Ulcer, Hx Urosepsis, Other GI Disorders History: Reports: Hx Kidney Stones Denies: Hx Dialysis, Hx Renal Disease, Other Problems/Disorders Musculoskeletal History: Reports: Hx Arthritis, Other Musculoskeletal History - Positive right lower back muscle spasms Sensory History: Reports: Hx Contacts or Glasses Denies: Hx Hearing Aid Opthamlomology History: Reports: Hx Contacts or Glasses Neurological History: Reports: Hx Migraine Denies: Hx Dementia, Hx Seizures, Hx Transient Ischemic Attacks (TIA) Psychiatric History: Reports: Hx Depression Denies: Hx Anxiety, Hx Panic Disorder, Hx Schizophrenia, Hx Bipolar Disorder - Cancer History Hx Chemotherapy: No Hx Radiation Therapy: No - Surgical History Surgery Procedure, Year, and Place: Tonsillectomy, 1992, [facility]. Choleycystectomy, 2004, [facility]. Hysterectomy, 2009, [facility] Hx Anesthesia Reactions: No Infectious Disease History: Yes Infectious Disease History: Denies: Hx Clostridium Difficile, Hx Hepatitis, Hx Human Immunodeficiency Virus (HIV), Hx of Known/Suspected MRSA, Hx Shingles, Hx Tuberculosis, Hx Known/ Suspected VRE, Hx Known/Suspected VRSA, History Other Infectious Disease, Traveled Outside the in Last 30 Days - Family History Known Family History: Positive: Hypertension Negative: Cardiac Disease, Diabetes - Social History Occupation: Employed Full-time Lives: With Family Alcohol Use: None Hx Substance Use: No Substance Use Type: Reports: None Hx Tobacco Use: No Smoking Status (MU): Never Smoked Tobacco Review of Systems Positive: Nausea. Negative: Abdominal Pain Positive: Other - Positive back pain All Other Systems Reviewed And Are Negative: Yes Physical Exam - Summary Physical Exam Summary: VITAL SIGNS: Reviewed. GENERAL: Patient is a well-developed and nourished female who is lying comfortable in the stretcher. Patient is not in any acute respiratory distress. HEAD AND FACE: No signs of trauma. No ecchymosis, hematomas or skull depressions. No sinus tenderness. EYES: PERRLA, EOMI x 2, No injected conjunctiva, no nystagmus. EARS: Hearing grossly intact. Ear canals and tympanic membranes are within normal limits. MOUTH: Oropharynx within normal limits. NECK: Supple, trachea is midline, no adenopathy, no JVD, no carotid bruit, no c- spine tenderness, neck with full ROM. CHEST: Symmetric, no tenderness at palpation LUNGS: Clear to auscultation bilaterally. No wheezing or crackles. CVS: Regular rate and rhythm, S1 and S2 present, no murmurs or gallops appreciated. ABDOMEN: Soft, non-tender. No signs of distention. No rebound no guarding, and no masses palpated. Bowel sounds are normal. MUSCULOSKELETAL: Tenderness over the left lower back. Bilateral straight leg raise test is negative EXTREMITIES: FROM in all major joints, no edema, no cyanosis or clubbing. NEURO: Alert and oriented x 3. No acute neurological deficits. Speech is normal and follows commands. SKIN: Dry and warm Triage Information Reviewed: Yes Vital Signs On Initial Exam: Initial Vitals Temp Pulse Resp BP Pulse Ox 98.3 F 99 20 161/104 97 02/27/18 20:31 02/27/18 20:31 02/27/18 20:31 02/27/18 20:31 02/27/18 20:31 Vital Signs Reviewed: Yes Diagnostics - Vital Signs Vital Signs Temp Pulse Resp BP Pulse Ox 02/27/18 20:31 98.3 F 99 20 161/104 97 - Laboratory Lab Statement: Any lab studies that have been ordered have been reviewed, and results considered in the medical decision making process. Re-Evaluation - Re-Evaluation First Eval Re-Evaluation Time: 23:25 Change: Unchanged Comment: Pt states she has a history of microscopic hematuria, and always has blood in her urine. 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 UA obtained. In the ED course the patient was given Toradol, Reglan, and Valium. Patient will be discharged with prescriptions for Flexeril and Ibuprofen and with follow up from PCP. The patient is agreeable with this plan. - Diagnoses Provider Diagnoses: Low back pain Discharge - Sign-Out/Discharge Documenting (check all that apply): Discharge/Admit/Transfer - Discharge home - Discharge Plan Condition: Stable Disposition: HOME Prescriptions: Cyclobenzaprine TAB* [Flexeril 10 MG TAB*] 10 mg PO TID PRN #20 tab PRN Reason: Spasms - Back Ibuprofen TAB* [Motrin TAB* 800 MG] 800 mg PO Q6H PRN #30 tab PRN Reason: Pain Patient Education Materials: Back Pain (ED), Cyclobenzaprine (By mouth), Ibuprofen (By mouth) Referrals: Bhupinder Guerra DO [Primary Care Provider] - 3 Days Additional Instructions: RETURN TO THE EMERGENCY DEPARTMENT FOR NEW OR WORSENING SYMPTOMS The documentation as recorded by the Bridgett prescott Emily accurately reflects the service I personally performed and the decisions made by , Juan Carver MD.
[2018-02-27 23:49] VITALS: BP 121/61
== END 2018-02-27 23:48 | disposition home or self-care (01) ==
LOC: ED 20:28
DX: M54.5 Low back pain (principal); Z86.79 Personal history of other diseases of the circulatory system
CPT/HCPCS: 81003; 81015; 87086; 96374; 96375; 99283; J1885; J2765; J3360

== ENCOUNTER 2018-09-16 15:53 | Emergency (ER) | payer BC ==
[2018-09-16 16:19] VITALS: BP 133/83
[2018-09-16] MEDS ORDERED: Albuterol/Ipratropium NEB.SOL* Albuterol 2.5 MG/Ipratropium 0.5 MG 3 ML INH ONE (16:30)
--- NOTE | 2018-09-16 16:37 | UC ---
Asthma HPI - HPI Summary HPI Summary: Worsening cough and trouble breathing over the last week. Denies fever or URI symptoms other than cough. No one at home has been sick. 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 Uses symbicort BID and proair as needed; feels like proair isn't helping right now. - History of Current Complaint Chief Complaint: UCRespiratory Stated Complaint: COUGH Time Seen by Provider: 09/16/18 16:22 Hx Obtained From: Patient Hx Last Menstrual Period: 2010 ?: No Onset/Duration: Gradual Onset, Lasting Days Timing: Constant Initial Severity: Mild Current Severity: Moderate Pain Intensity: 4 Location/Character: Cough (Nonproductive) Aggravating Factor(s): Exertion, Weather Change Alleviating Factor(s): Nothing Associated Signs and Symptoms: Positive: Negative - Allergy/Home Medications Allergies/Adverse Reactions: Allergies Allergy/AdvReac Type Severity Reaction Status Date / Time acetaminophen [From Lortab] Allergy Rash Verified 12/21/17 08:06 amoxicillin Allergy Rash Verified 12/21/17 08:06 cefaclor [From Ceclor] Allergy Rash Verified 12/21/17 08:06 hydrocodone [From Lortab] Allergy Rash Verified 12/21/17 08:06 hydromorphone [From Dilaudid] Allergy Vomiting Verified 12/21/17 08:06 Home Medications: Home Medications Albuterol inh POWDER (NF) [Proair Respiclick] 2 puff INH Q6HR PRN 09/16/18 [ History Confirmed 09/16/18] Budesonide/Formote 80/4.5(NF) [Symbicort 80/4.5 (NF)] 1 puff INH BID 09/16/18 [ History Confirmed 09/16/18] PMH/Surg Hx/FS Hx/Imm Hx Respiratory History: Asthma Other History Of: Negative For: HIV, Hepatitis B, Hepatitis C, Anticoagulant Therapy - Surgical History Surgical History: Yes Surgery Procedure, Year, and Place: Tonsillectomy, 1992, [facility]. Choleycystectomy, 2004, [facility]. Hysterectomy, 2008, [facility] - Family History Known Family History: Positive: Hypertension Negative: Cardiac Disease, Diabetes - Social History Occupation: Employed Full-time Lives: With Family Alcohol Use: None Substance Use Type: None Smoking Status (MU): Never Smoked Tobacco - Immunization History Most Recent Influenza Vaccination: 06/2015 Most Recent Tetanus Shot: 2014 Most Recent Pneumonia Vaccination: never Review of Systems All Other Systems Reviewed And Are Negative: Yes Constitutional: Positive: Negative Skin: Positive: Negative Eyes: Positive: Negative ENT: Positive: Negative Respiratory: Positive: Shortness Of Breath, Cough Cardiovascular: Positive: Negative Gastrointestinal: Positive: Negative Genitourinary: Positive: Negative Motor: Positive: Negative Neurovascular: Positive: Negative Musculoskeletal: Positive: Negative Neurological: Positive: Negative Psychological: Positive: Negative Is Patient Immunocompromised?: No Physical Exam Triage Information Reviewed: Yes Appearance: Well-Nourished Vital Signs: Initial Vital Signs Temp 97.1 F 09/16/18 16:13 Pulse 85 09/16/18 16:13 Resp 18 09/16/18 16:13 BP 133/83 09/16/18 16:13 Pulse Ox 99 09/16/18 16:13 Vital Signs Reviewed: Yes Eye Exam: Normal Eyes: Positive: Conjunctiva Clear ENT Exam: Normal ENT: Positive: Normal ENT inspection, Hearing grossly normal, Pharynx normal, TMs normal Dental Exam: Normal Neck exam: Normal Neck: Positive: Supple, Nontender, No Lymphadenopathy Respiratory: Positive: Decreased breath sounds, Accessory muscle use Cardiovascular Exam: Normal Cardiovascular: Positive: RRR, No Murmur Musculoskeletal Exam: Normal Neurological Exam: Normal Neurological: Positive: Alert Psychological Exam: Normal Skin Exam: Normal Re-Evaluation - Re-Evaluation First Eval Re-Evaluation Time: 16:57 Change: Improved - slightly improved air movement Asthma Course/Dx - Differential Dx/Diagnosis Provider Diagnosis: Asthma exacerbation Discharge - Sign-Out/Discharge Documenting (check all that apply): Patient Departure All imaging exams completed and their final reports reviewed: No Studies - Discharge Plan Condition: Stable Disposition: HOME Prescriptions: predniSONE TAB* [Deltasone TAB*] 50 mg PO DAILY #5 tab Patient Education Materials: Asthma (ED) Referrals: Bhupinder Guerra DO [Primary Care Provider] - 3 Days Additional Instructions: Start the prednisone; double your symbicort to 2 puffs twice daily. Please see your PCP early next week for a recheck. If you have worsening trouble breathing, please go to the emergency department. - Billing Disposition and Condition Condition: STABLE Disposition: Home - Attestation Statements Provider Attestation: Per institutional requirements, I have reviewed the chart, however, I was not consulted specifically or made aware of this patient by the midlevel provider. I did not personally evaluate, interact with , or disposition this patient.
== END 2018-09-16 17:00 | disposition home or self-care (01) ==
LOC: UCEAST 15:53
DX: J45.901 Unspecified asthma with (acute) exacerbation (principal); Z88.6 Allergy status to analgesic agent; Z88.1 Allergy status to other antibiotic agents; Z88.5 Allergy status to narcotic agent; Z88.0 Allergy status to penicillin
CPT/HCPCS: 99212; A9270-GY; G0463